=== PATIENT | female | born 1995 | race Caucasian/White ===

== ENCOUNTER 2020-03-26 22:32 | Emergency (ER) | payer SELFPAY ==
--- NOTE | 2020-03-26 23:23 | ED_ITS ---
HPI - Fever General Chief Complaint: Fever Stated Complaint: FLU LIKE SYMPTOMS Time Seen by Provider: 03/26/20 23:23 Source: patient Mode of arrival: ambulatory Limitations: no limitations History of Present Illness HPI Narrative: Patient with recent cough for 2 weeks, now with increasing fever and conjunctivits elicited complaint: fever Onset (ago): week(s) Context: sick contacts and other(s) with similar symptoms Associated symptoms: myalgias and headache Related Data Previous Rx's Medication Instructions Recorded besifloxacin [Besivance] 1 drp OPHTHALMIC (EYE) TID 7 Days 03/26/20 ml Allergies Allergy/AdvReac Type Severity Reaction Status Date / Time No Known Allergies Allergy Verified 03/26/20 23:27 Review of Systems Constitutional: Constitutional: Reports no additional constitutional complaints Eyes: Eyes: Reports no additional eye complaints ENT: Denies dizziness Cardiovascular: Cardiovascular: Reports no additional cardiovascular complaints Respiratory: Respiratory: Reports as per HPI Gastrointestinal: Gastrointestinal: Reports no additional gastrointestinal complaints Genitourinary: Genitourinary: Reports no additional female genitourinary complaints Musculoskeletal: Musculoskeletal: Reports no additional musculoskeletal complaints Integumentary/Breasts: Skin/Breast: Denies rash Neurologic: Reports system reviewed and no additional complaints, except as documented, Denies dizziness and Denies Sensory deficit (Neuro) Psychiatric: Psychiatric: Denies anxiety Physical Exam Const: General: healthy appearing Nutritional Appearance: average body habitus Orientation/consciousness: oriented to person and patient oriented x3 Limitations: no limitations HENMT: Head: Yes normal to inspection Ears: external ears normal General nose exam: Normal external nose present Mouth: Normal oral and palatal mucosa present and oropharynx normal Throat: Yes posterior oropharynx normal Eyes: Other: bilateral conjunctivitis Neck: Other: supple Neck: Yes normal visual inspection Chest: Chest palpation & inspection: normal inspection of the chest Resp: Auscultation: clear to auscultation bilaterally Cardio: Jugular venous distension: no JVD Rate: regular rate Rhythm: regular rhythm Heart sounds: S1 normal heart sound present and S2 normal heart sound present GI: Inspection: Yes normal to inspection Palpation (GI): Soft to palpation, nontender and No hepatosplenomegaly present Auscultation: normal bowel sounds : General: Yes no CVA tenderness Back/Spine/Pelvis: Back: no CVA tenderness Skin: General skin exam: no rashes or lesions noted Neuro: General: oriented to person and patient oriented x3 Cranial nerves: Yes CN's II-XII intact bilaterally Motor exam (neuro): 5/5 motor strength present throughout Sensory Exam: No Sensory deficit (Neuro) Extrem: General: Yes normal to inspection Psych: Appearance: grossly normal Course Reevaluation(s) Reevaluation #1: will obtain covid and treat conjunctivitis Time: 23:26 MDM - Fever MDM Narrative Medical decision making narrative: concerned about COVID and conjunctivits Discharge Plan Discharge Clinical Impression: Viral infection, Exposure to SARS-associated coronavirus Acute bacterial conjunctivitis Qualifiers: Laterality: bilateral Qualified Code(s): H10.33 - Unspecified acute con junctivitis, bilateral Patient Disposition: Home, Self-Care Additional Instructions: self quarantine until results are known, follow up with your doctor Prescriptions: New Besivance 0.6 % drops,suspension 1 drp ophthalmic (eye) TID 7 Days RF: 0
[2020-03-26 23:46] VITALS: BP 117/58; PULSE 75; PULSE 76; RESP 16; TEMP 36.9; O2SAT 100; BMI 29.2
== END 2020-03-26 23:59 | disposition home or self-care (01) ==
LOC: HO.ED 23:37
PROVIDERS: Emergency Provider Emergency Medicine
DX: H10.33 Unspecified acute conjunctivitis, bilateral (principal); Z20.828 Contact with and (suspected) exposure to other viral communicable diseases
CPT/HCPCS: 36415; 87635; 99283; 99284

== ENCOUNTER 2020-04-01 16:22 | Emergency (ER) | payer SELFPAY ==
[2020-04-01 16:35] VITALS: BP 120/69; PULSE 95; RESP 16; TEMP 37.1; O2SAT 100; BMI 29.0
--- NOTE | 2020-04-01 17:06 | ED.DENTAL ---
HPI - Dental/Oral General Chief complaint: Dental/Oral Stated complaint: tooth infection Time Seen by Provider: 04/01/20 17:06 Source: patient Mode of arrival: ambulatory Limitations: no limitations History of Present Illness HPI Narrative: right lower dental pain times several weeks. 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 Complaint: tooth pain Location: Tooth # Teeth map: 1. Extensive caries and broken tooth with mild erythema and swelling. No fluctuance or palpable abscess Onset (ago): week(s) Duration: constant Severity: mild Relieving factors: nothing Exacerbating factors: chewing, cold, heat and drinking fluids Context: history of dental caries and trauma (mechanism) Treatment prior to arrival: none Related Data Previous Rx's Medication Instructions Recorded besifloxacin [Besivance] 1 drp OPHTHALMIC (EYE) TID 7 Days 03/26/20 ml besifloxacin [Besivance] 1 drp OPHTHALMIC (EYE) TID 7 Days 03/27/20 ml amoxicillin 500 mg PO BID #14 cap 04/01/20 ibuprofen 800 mg PO Q8H PRN #20 tab 04/01/20 Allergies Allergy/AdvReac Type Severity Reaction Status Date / Time No Known Allergies Allergy Verified 03/26/20 23:27 Review of Systems Review of Systems: Yes all other systems are reviewed and are negative Constitutional: Constitutional: Reports no additional constitutional complaints, Denies body ache(s), Denies chills, Denies fever(s), Denies headache(s) and Denies weakness Eyes: Eyes: Reports no additional eye complaints and Denies change in vision ENT: Reports system reviewed and no additional complaints, except as documented, Reports dental pain, Denies dizziness, Denies headache(s), Denies nasal congestion, Denies nasal discharge and Denies neck pain Cardiovascular: Cardiovascular: Reports no additional cardiovascular complaints, Denies chest pain, Denies leg edema and Denies dyspnea Respiratory: Respiratory: Reports no additional respiratory complaints, Denies cough and Denies dyspnea Gastrointestinal: Gastrointestinal: Reports no additional gastrointestinal complaints, Denies abdominal pain, Denies diarrhea, Denies nausea and Denies vomiting Genitourinary: Genitourinary: Reports no additional female genitourinary complaints and Denies urinary incontinence Musculoskeletal: Musculoskeletal: Reports no additional musculoskeletal complaints, Denies back pain, Denies arthralgias, Denies joint swelling, Denies neck pain, Denies numbness and Denies tingling Integumentary/Breasts: Skin/Breast: Reports system reviewed and no additional complaints, except as docu and Denies rash Neurologic: Reports system reviewed and no additional complaints, except as documented, Denies Abnormal speech present, Denies dizziness, Denies headache(s), Denies numbness, Denies tingling and Denies weakness PMF Past Medical History Attestation statement: The following information was validated with the patient. Source: obtained from family and nursing notes reviewed Medical History Multiple sclerosis Family History Family History Mother Hypertension Diabetes Father Hypertension Maternal Grandmother Diabetes Social History Social History Alcohol intake: current Alcohol intake frequency: 0-2 drinks per day Alcohol type: hard liquor Smoking Status: Current every day smoker Advance Directives: No Advance Directives Information Provided: Yes Physical Exam Vital Signs and I&O and Narrative: Vital Signs and I&O: Vital Signs Temp 98.7 F 04/01/20 16:35 Pulse 95 04/01/20 16:35 Resp 16 04/01/20 16:35 BP 120/69 04/01/20 16:35 Pulse Ox 100 04/01/20 16:35 Intake & Output 03/31/20 04/01/20 04/01/20 18:59 06:59 18:59 Weight 81.647 kg Body Mass Index 29.0 Const: General: cooperative, healthy appearing, comfortable and no acute distress Orientation/consciousness: patient oriented x3 Limitations: no limitations HENMT: Other: no trismus. Head: Yes normal to inspection Ears: hearing grossly normal bilaterally General nose exam: Normal external nose present Face and sinus: Yes normal facial exam Mouth: Normal oral and palatal mucosa present Throat: Yes posterior oropharynx normal Eyes: General: appearance normal, both eyes and all related structures Pupils: Equal, round and reactive pupils present Neck: Neck: Yes normal visual inspection Chest: Chest palpation & inspection: normal inspection of the chest Resp: Effort & Inspection: normal respiratory effort Auscultation: clear to auscultation bilaterally Cardio: Rate: regular rate Rhythm: regular rhythm Peripheral pulses: Peripheral pulses 2+ throughout GI: Inspection: Yes normal to inspection Palpation (GI): Soft to palpation and nontender Auscultation: normal bowel sounds Back/Spine/Pelvis: Thoracic/Lumbar Spine: thoracic and lumbar spine normal to inspection Skin: General skin exam: no rashes or lesions noted Neuro: General: patient oriented x3, no focal motor deficits and normal sensation to monofilament Cranial nerves: Yes Equal, round and reactive pupils present Cognition (Neuro): normal cognition Speech: No Abnormal speech present Gait exam (Neuro): Normal gait present Motor exam (neuro): 5/5 motor strength present throughout Extrem: General: Yes normal to inspection MDM - Dental/Oral MDM Narrative Medical decision making narrative: Dental caries with local infection. No trismus or palpable abscess. Discharge Plan Discharge Clinical Impression: Toothache, Dental caries Patient Disposition: Home, Self-Care Instructions: Toothache (ED) Additional Instructions: see dental clinic list Prescriptions: New amoxicillin 500 mg capsule 500 mg PO BID Qty: 14 RF: 0 ibuprofen 800 mg tablet 800 mg PO Q8H PRN (Reason: pain) Qty: 20 RF: 0 No Action Besivance 0.6 % drops,suspension 1 drp ophthalmic (eye) TID 7 Days RF: 0 Besivance 0.6 % drops,suspension 1 drp ophthalmic (eye) TID 7 Days RF: 0 Referrals: Physician,None [Primary Care Provider] - 2 days Interventions: ED Discharge Assessment Last Done: 04/01/20 17:45 Discharge Date/Time: 04/01/20 17:45
== END 2020-04-01 17:45 | disposition home or self-care (01) ==
PROVIDERS: Emergency Provider Internal Medicine
DX: K02.9 Dental caries, unspecified (principal); F17.200 Nicotine dependence, unspecified, uncomplicated; G35 Multiple sclerosis
CPT/HCPCS: 99283

== ENCOUNTER 2020-05-17 19:58 | Emergency (ER) | payer OTHER, SELFPAY ==
--- NOTE | 2020-05-17 | US_ITS ---
EXAM: Pelvic OB Ultrasound CLINICAL INDICATION: Bleeding and cramping. Approximately 8 weeks . COMPARISON: No similar prior imaging available for comparison. TECHNIQUE: The pelvis was evaluated using transabdominal imaging. FINDINGS: The uterus measures approximately 10.6 x 6.9 x 7.2 cm. Within the uterus there is a single gestational sac. A yolk sac is visualized as is a pole. [place]-rump length measures approximately 1.9 cm which corresponds with an estimated gestational age of 8 weeks and 3 days. heart rate of 156 bpm demonstrated. No motion identified. The cervix is unremarkable in appearance. Both ovaries are visualized and are grossly unremarkable with the exception of a 2.3 cm right ovarian cyst, possibly a corpus luteum. No free fluid identified within the pelvic cul-de-sac. US/US OB <= 14 weeks fetus IMPRESSION: Single live intrauterine with an estimated gestational age by ultrasound evaluation of 8 weeks and 3 days. This corresponds with an estimated due date of 12/24/2020.
[2020-05-17 20:40] VITALS: BP 100/53; PULSE 83; RESP 18; TEMP 37.1; O2SAT 100; BMI 30.7
[2020-05-17 20:51] LABS: Glucose Urine UA NEG (NEG); Leukocyte Esterase Urine TRACE (NEG); Nitrite Urine NEG (NEG); Specific Gravity - Urine >= 1.030 (1.005-1.025); Urine Blood NEG (NEG); Urine Ketones NEG (NEG); Urine Protein NEG (NEG-TRACE)
[2020-05-17 20:52] LABS: Appearance Urine HAZY; Color Urine YELLOW
[2020-05-17 20:58] LABS: Bacteria Urine 2+ /LPF; Mucus Urine 2+ /LPF; RBC Urine 0-2 /HPF (0); Squamous Epithelial Cell Urine 2+ /LPF
--- NOTE | 2020-05-17 21:12 | ED.PREGNANCY ---
HPI - General Chief complaint: Abdominal Pain Stated complaint: Abdominal pressure/Preg Time Seen by Provider: 05/17/20 21:05 Source: patient Mode of arrival: ambulatory History of Present Illness HPI Narrative: 24-year-old female. at approximately 8 weeks , with unknown last date of menstruation. Here for generalized suprapubic cramping with vaginal spotting. Denies urinary pain. Denies fevers or chills denies lower back pain. Denies syncope or nausea vomiting. Denies trauma has not seen an OBGYN at [facility] Complaint: abdominal pain and vaginal bleeding Onset (ago): day(s) (2) Pain Consistency: constant Location: pelvis Severity: mild Severity scale (1-10): 3 Hx Last Menstrual Period: End february Patient : Yes care: none Related Data Previous Rx's Medication Instructions Recorded besifloxacin [Besivance] 1 drp OPHTHALMIC (EYE) TID 7 Days 03/26/20 ml besifloxacin [Besivance] 1 drp OPHTHALMIC (EYE) TID 7 Days 03/27/20 ml amoxicillin 500 mg PO BID #14 cap 04/01/20 ibuprofen 800 mg PO Q8H PRN #20 tab 04/01/20 nitrofurantoin monohyd/m-cryst 100 mg PO BID #10 cap 05/17/20 [Macrobid] Allergies Allergy/AdvReac Type Severity Reaction Status Date / Time No Known Allergies Allergy Verified 03/26/20 23:27 Review of Systems Review of Systems: Constitutional : No Weight loss, No Fever, No Chills, No Night Sweats, No Fatigue, No Malaise ENT/Mouth : No Hearing loss, No Ear Pain, No Nasal Congestion, No Sinus Pain, No Hoarseness, No sore throat, No Rhinorrhea, No Swallowing Difficulty Eyes: No Eye Pain, No Swelling, No Redness, No Foreign Body, No Discharge, No Vision Changes Cardiovascular : No Chest Pain, No SOB, No Dyspnea on Exertion, No Orthopnea, No Edema, No Palpitations Respiratory : No Cough, No Sputum, No Wheezing, No Smoke Exposure, No Dyspnea Gastrointestinal : No Nausea, No Vomiting, No Diarrhea, No Constipation, No abdominal Pain, No Hematochezia, No Melena Genitourinary : Positive irregular bleeding, No Dysuria, No Urinary Frequency, No Hematuria, No Urinary Incontinence, No Urgency, No Flank Pain, No Urinary Flow Changes, No Hesitancy Musculoskeletal : No joint pain, No Myalgias, No Joint Swelling Skin : No Skin Lesions, No rash Neuro : No Weakness, No Numbness, No Paresthesias, No Loss of Consciousness, No Dizziness, No Headache Psych : No Anxiety/Panic, No Depression, No SI/HI/AH/VH, No Social Issues, Heme/Lymph: No Bruising, No Bleeding,No Lymphadenopathy Endocrine : No Polyuria, No Polydipsia, No Temperature Intolerance [facility] Past Medical History Medical History Multiple sclerosis Hx Last Menstrual Period: End of February Family History Family History Mother Hypertension Diabetes Father Hypertension Maternal Grandmother Diabetes Social History Social History Alcohol intake: never Smoking Status: Light tobacco smoker Smoked in Last 30 Days: No Use of substances other than those prescribed or required for medical reasons: No Advance Directives: No Advance Directives Information Provided: Yes Physical Exam Vital Signs: Vital Signs: Last Vital Signs Temp 98.2 F 05/17/20 22:11 Pulse 72 05/17/20 22:11 Resp 18 05/17/20 22:11 BP 117/45 L 05/17/20 22:11 Pulse Ox 100 05/17/20 22:11 Body Mass Index 30.7 Vital signs reviewed Appearance: Alert. Oriented X3. No acute distress. Eyes: Pupils equal, round and reactive to light. ENT: Pharynx normal. Neck: Normal inspection. Neck supple. No lymph nodes noted. No crepitus CVS: Normal heart rate and rhythm. Pulses normal. Normal S1 and S2 Respiratory: No respiratory distress. Breath sounds normal. No Wheezing. No rales Abdomen: Soft and nontender. No rigidity. No distention. good BS x4 Skin: Skin warm and dry. Normal skin color. Normal skin turgor. Extremities: No lower extremity edema. Neurovascular intact to all extremities. No Lacerations. No Rash Neuro: Oriented X 3. No motor deficit. No sensory deficit. Moving all extermities. No slurred speech. Ob: Deferred secondary to ultrasound Course Reevaluation(s) Reevaluation #1: Differential diagnosis is ectopic , , UTI MDM - OB/Uterine Contractions MDM Narrative Medical decision making narrative: 24-year-old female with vaginal bleeding. Ultrasound confirms IUP mild UTI will discharge home with p.o. antibiotics Rh positive Lab Data Result diagrams: 05/17/20 21:24 05/17/20 21:24 Labs: Lab Results 05/17/20 05/17/20 05/17/20 Range/Units 20:44 21:24 21:24 WBC 9.1 (4.8-10.8) X10*3/uL RBC 5.31 (4.20-5.50) X10*6/uL Hgb 10.5 L (12.0-16.0) g/dl Hct 36.2 L (37-47) % MCV 68.2 L (80-98) fL MCH 19.8 L (27.0-33.0) pg MCHC 29.0 L (31.0-35.0) g/dl RDW 20.5 H (11.0-16.0) % Plt Count 315 (160-400) X10*3/uL MPV 10.4 (9.4-12.3) fL Immature Gran % (Auto) 0.3 (0.0-0.4) % Neut % (Auto) 70.5 (45-73) % Lymph % (Auto) 18.8 L (20-40) % [place] % (Auto) 9.4 (2-11) % Eos % (Auto) 0.7 (0-4) % Baso % (Auto) 0.3 (0-2) % Lymph # (Auto) 1.7 (1.2-4.9) X10*3/uL [place] # (Auto) 0.9 (0.1-1.2) X10*3/uL Eos # (Auto) 0.1 (0.0-0.4) X10*3/uL Baso # (Auto) 0.0 (0.0-0.2) X10*3/uL Abs Immat Gran (auto) 0.03 (0.00-0.03) X10*3/uL Absolute Neuts (auto) 6.4 (2.0-8.3) X10*3/uL Absolute Nucleated RBC 0.000 (0.0-0.012) X10*3/uL Nucleated RBC % (auto) 0.0 (0.0-0.2) /100WBC Sodium 133 L (135-145) mmol/L Potassium 4.0 (3.3-5.1) mmol/l Chloride 102 (96-108) mmol/L Carbon Dioxide 22 (22-29) mmol/L Anion Gap 13 (12-20) BUN 8 L (9-16) mg/dL Creatinine 0.70 (0.5-1.4) mg/dL Estim Creat Clear Calc 137.0 Estimated GFR > 60 Random Glucose 75 (60-115) mg/dL Calcium 9.0 (8.4-10.2) mg/dL Total Bilirubin 0.3 (0.0-1.0) mg/dL Direct Bilirubin < 0.2 (0.0-0.5) mg/dL AST 13 (5-31) U/L ALT 7 (0-31) U/L Alkaline Phosphatase 50 (39-117) U/L Total Protein 7.1 (6.5-8.0) g/dL Albumin 4.0 (3.5-5.0) g/dL Beta HCG, Quant 364465 mIU/mL Urine Color YELLOW Urine Appearance HAZY Urine pH 6.0 (5.0-8.0) Ur Specific [place] >= 1.030 H (1.005-1.025) Urine Protein NEG (NEG-TRACE) MG/DL Urine Glucose (UA) NEG (NEG) MG/DL Urine Ketones NEG (NEG) MG/DL Urine Blood NEG (NEG) Urine Nitrite NEG (NEG) Ur Leukocyte Esterase TRACE H (NEG) Urine RBC 0-2 (0) /HPF Urine WBC 10-14 H (0-4) /HPF Ur Squamous Epith Cells 2+ /LPF Urine Bacteria 2+ /LPF Urine Mucus 2+ /LPF Urine Test POSITIVE H (NEGATIVE) Blood Type 05/17/20 Range/Units 21:25 WBC (4.8-10.8) X10*3/uL RBC (4.20-5.50) X10*6/uL Hgb (12.0-16.0) g/dl Hct (37-47) % MCV (80-98) fL MCH (27.0-33.0) pg MCHC (31.0-35.0) g/dl RDW (11.0-16.0) % Plt Count (160-400) X10*3/uL MPV (9.4-12.3) fL Immature Gran % (Auto) (0.0-0.4) % Neut % (Auto) (45-73) % Lymph % (Auto) (20-40) % [place] % (Auto) (2-11) % Eos % (Auto) (0-4) % Baso % (Auto) (0-2) % Lymph # (Auto) (1.2-4.9) X10*3/uL [place] # (Auto) (0.1-1.2) X10*3/uL Eos # (Auto) (0.0-0.4) X10*3/uL Baso # (Auto) (0.0-0.2) X10*3/uL Abs Immat Gran (auto) (0.00-0.03) X10*3/uL Absolute Neuts (auto) (2.0-8.3) X10*3/uL Absolute Nucleated RBC (0.0-0.012) X10*3/uL Nucleated RBC % (auto) (0.0-0.2) /100WBC Sodium (135-145) mmol/L Potassium (3.3-5.1) mmol/l Chloride (96-108) mmol/L Carbon Dioxide (22-29) mmol/L Anion Gap (12-20) BUN (9-16) mg/dL Creatinine (0.5-1.4) mg/dL Estim Creat Clear Calc Estimated GFR Random Glucose (60-115) mg/dL Calcium (8.4-10.2) mg/dL Total Bilirubin (0.0-1.0) mg/dL Direct Bilirubin (0.0-0.5) mg/dL AST (5-31) U/L ALT (0-31) U/L Alkaline Phosphatase (39-117) U/L Total Protein (6.5-8.0) g/dL Albumin (3.5-5.0) g/dL Beta HCG, Quant mIU/mL Urine Color Urine Appearance Urine pH (5.0-8.0) Ur Specific [place] (1.005-1.025) Urine Protein (NEG-TRACE) MG/DL Urine Glucose (UA) (NEG) MG/DL Urine Ketones (NEG) MG/DL Urine Blood (NEG) Urine Nitrite (NEG) Ur Leukocyte Esterase (NEG) Urine RBC (0) /HPF Urine WBC (0-4) /HPF Ur Squamous Epith Cells /LPF Urine Bacteria /LPF Urine Mucus /LPF Urine Test (NEGATIVE) Blood Type O Positive Discharge Plan Discharge Clinical Impression: Vaginal bleeding, , threatened UTI (urinary tract infection) during Qualifiers: Trimester: first trimester Qualified Code(s): O23.41 - Unspecified infection of urinary tract in , first trimester Qualifiers: Weeks of gestation: 8 weeks Qualified Code(s): Z3A.08 - 8 weeks gestation of Patient Disposition: Home, Self-Care Instructions: Threatened Miscarriage (ED), Urinary Tract Infection in (ED) Additional Instructions: Thank you for visiting the emergency department today. If your symptoms worsen or do not resolve completely please return to the emergency department immediately or call 911. if he have any questions please call your primary care physician Prescriptions: New nitrofurantoin monohyd/m-cryst [Macrobid] 100 mg capsule 100 mg PO BID Qty: 10 RF: 0 No Action Besivance 0.6 % drops,suspension 1 drp ophthalmic (eye) TID 7 Days RF: 0 Besivance 0.6 % drops,suspension 1 drp ophthalmic (eye) TID 7 Days RF: 0 amoxicillin 500 mg capsule 500 mg PO BID Qty: 14 RF: 0 ibuprofen 800 mg tablet 800 mg PO Q8H PRN (Reason: pain) Qty: 20 RF: 0 Referrals: [facility] [Provider Group] - 2 days
[2020-05-17 21:18] LABS: UPreg QC Valid YES; Urine Pregnancy POSITIVE (NEGATIVE)
[2020-05-17] MEDS: 0.9 % Sodium Chloride 1,000 ML 999 ML IVCONT (21:26)
[2020-05-17 21:32] LABS: Basophils Percent Auto 0.3 % (0-2); Eosinophils Absolute Auto 0.1 X10*3/uL (0.0-0.4); Eosinophils Percent Auto 0.7 % (0-4); Hematocrit 36.2 % (37-47); Hemoglobin 10.5 g/dl (12.0-16.0); Imm Gran Abs Auto 0.03 X10*3/uL (0.00-0.03); Imm Gran Pct Auto 0.3 % (0.0-0.4); Lymphocytes Absolute Auto 1.7 X10*3/uL (1.2-4.9); Lymphocytes Percent Auto 18.8 % (20-40); Mean Corpuscular Hemoglobin 19.8 pg (27.0-33.0); Mean Corpuscular Volume 68.2 fL (80-98); Mean Platelet Volume 10.4 fL (9.4-12.3); Monocytes Absolute Auto 0.9 X10*3/uL (0.1-1.2); Monocytes Percent Auto 9.4 % (2-11); Neutrophils Absolute Auto 6.4 X10*3/uL (2.0-8.3); Neutrophils Percent Auto 70.5 % (45-73); Platelet Count 315 X10*3/uL (160-400); Red Blood Count 5.31 X10*6/uL (4.20-5.50); Red Cell Distribution Width 20.5 % (11.0-16.0); White Blood Count 9.1 X10*3/uL (4.8-10.8)
[2020-05-17 21:33] LABS: MANUAL DIFF FLAG NO
[2020-05-17 21:53] LABS: Alanine Aminotransferase 7 U/L (0-31); Alkaline Phosphatase 50 U/L (39-117); Anion Gap 13 (12-20); Aspartate Amino Transferase 13 U/L (5-31); Bilirubin Direct < 0.2 mg/dL (0.0-0.5); Bilirubin Total 0.3 mg/dL (0.0-1.0); Blood Urea Nitrogen 8 mg/dL (9-16); Carbon Dioxide 22 mmol/L (22-29); Chloride 102 mmol/L (96-108); Estimated Glomerular Filt Rate > 60; Glucose Random 75 mg/dL (60-115); Sodium 133 mmol/L (135-145); Total Protein 7.1 g/dL (6.5-8.0)
[2020-05-17 22:11] VITALS: BP 117/45; PULSE 72; RESP 18; TEMP 36.8; O2SAT 100
[2020-05-17] MEDS: Nitrofurantoin Monohyd/M-Cryst 100 MG CAPSULE PO (23:32)
== END 2020-05-18 00:08 | disposition home or self-care (01) ==
PROVIDERS: Emergency Provider Emergency Medicine
DX: O20.0 Threatened abortion (principal); Z3A.08 8 weeks gestation of pregnancy
CPT/HCPCS: 36415; 76801; 80048; 80076; 81001; 81025; 84702; 85025; 86900; 86901; 87086; 96360; 99284

== ENCOUNTER 2020-05-27 20:44 | Emergency (ER) | payer OTHER, SELFPAY ==
[2020-05-27 20:46] VITALS: BP 119/62; PULSE 95; RESP 16; TEMP 36.6; O2SAT 99; BMI 30.7
[2020-05-27 22:00] VITALS: BP 96/58; PULSE 86; RESP 18; TEMP 36.8; O2SAT 98
--- NOTE | 2020-05-27 23:03 | ED_ITS ---
HPI - General Chief complaint: Vaginal Bleeding Stated complaint: Vaginal bleeding/10 weeks preg. Time Seen by Provider: 05/27/20 21:52 Source: patient Mode of arrival: ambulatory Limitations: no limitations History of Present Illness HPI Narrative: This is a 24-year-old female with significant past medical history of MS not currently on medication who is currently , G1, with an LMP of 03/19 which places her at approximately 10 weeks which was further corroborated as per patient by a free clinic in [place] where she had an ultrasound. She presents today with complaints of lower abdominal /pelvic cramping that started this morning with associated spotting but denies any clots. In addition, patient denies any fevers, chills, vomiting, diarrhea, urinary pain/ burning /frequency. Of note, patient was recently treated for UTI. Related Data Previous Rx's Medication Instructions Recorded besifloxacin [Besivance] 1 drp OPHTHALMIC (EYE) TID 7 Days 03/26/20 ml besifloxacin [Besivance] 1 drp OPHTHALMIC (EYE) TID 7 Days 03/27/20 ml amoxicillin 500 mg PO BID #14 cap 04/01/20 ibuprofen 800 mg PO Q8H PRN #20 tab 04/01/20 nitrofurantoin monohyd/m-cryst 100 mg PO BID #10 cap 05/17/20 [Macrobid] cefixime 400 mg PO DAILY 5 Days #5 cap 05/28/20 Allergies Allergy/AdvReac Type Severity Reaction Status Date / Time No Known Allergies Allergy Verified 03/26/20 23:27 Review of Systems Review of Systems: Pertinent positives and negatives as stated in HPI 10 point review systems is otherwise negative. [facility] Past Medical History Source: nursing notes reviewed Medical History Multiple sclerosis Family History Family History Mother Hypertension Diabetes Father Hypertension Maternal Grandmother Diabetes Social History Social History Alcohol intake: unknown Smoking Status: Never smoker Use of substances other than those prescribed or required for medical reasons: No Advance Directives: No Advance Directives Information Provided: Yes Physical Exam Vital Signs: Vital Signs: Last Vital Signs Temp 98.2 F 05/28/20 00:49 Pulse 67 05/28/20 00:49 Resp 18 05/28/20 00:49 BP 95/41 L 05/28/20 00:49 Pulse Ox 98 05/28/20 00:49 Body Mass Index 30.7 VITAL SIGNS: Reviewed. GENERAL: Well developed, well nourished, in no acute distress. HEAD: Normocephalic/atraumatic, EYES: PERRLA, EOMI intact without pain, no nystagmus/pallor/icterus noted EARS: Ext canals without abnormality, TMs non-bulging and non-erythematous NOSE: Nares patent bilateral OROPHARYNX: no oral lesions noted, posterior pharynx clear and non-erythematous without noted tonsillar enlargement/erythema/exudates NECK: Supple, no adenopathy LUNGS: Normal breath sounds. No adventitious sounds or accessory muscle use. SpO2<99> CARDIOVASCULAR: Regular rate and rhythm without noted murmurs, no JVD or lower extremity edema. ABDOMEN: Soft, non-tender, non-distended with bowel sounds. No rigidity. No guarding. No palpable masses or hernias noted MUSCULOSKELETAL: No tenderness, deformities, or effusions noted on gross inspection. EXTREMITIES: No cyanosis, clubbing or edema. SKIN: Inspection of the skin reveals no rashes, ulcerations, jaundice, pallor, or petechiae. NEUROLOGIC: Alert and oriented x 4. Strength and sensation to light touch were grossly intact x 4. Course Course Course Narrative: This is a 24-year-old female with history and clinical presentation concerning for possible SAB and will evaluate for possible loss versus benign 1st trimester transient vaginal bleeding.In review of prior documentation patient was seen here on 05/17 for similar symptoms and at that time was determined to be Rh positive and discharged home and treated for a UTI. On review investigations today there are no acute findings in comparison with the workup from 05/17 other than a noted decrease in the quantitative beta HCG, however ultrasound shows a live IUP at 9 weeks and 6 days. In addition, there is a noted evidence of trace leukocyte esterase. Dr Bradley called to discuss the significance of the decrease and beta hCG And patient will receive 1 L fluids as well as a single dose of IV Rocephin. Reevaluation(s) Reevaluation #1: I discussed this case with Dr. Bradley who states that the quantitative beta-hCG can at times around the 10 week. Plateau and as long as the ultrasound showing a live IUP he recommends that patient should be counseled on possible SAB, but that this can otherwise be followed up outpatient. Time: 01:50 MDM - OB/Uterine Contractions Lab Data Result diagrams: 05/27/20 23:08 05/27/20 23:08 Labs: Lab Results 05/27/20 05/27/20 05/27/20 Range/Units 23:08 23:08 23:53 WBC 9.0 (4.8-10.8) X10*3/uL RBC 5.28 (4.20-5.50) X10*6/uL Hgb 10.8 L (12.0-16.0) g/dl Hct 36.5 L (37-47) % MCV 69.1 L (80-98) fL MCH 20.5 L (27.0-33.0) pg MCHC 29.6 L (31.0-35.0) g/dl RDW 21.3 H (11.0-16.0) % Plt Count 281 (160-400) X10*3/uL MPV 10.4 (9.4-12.3) fL Immature Gran % (Auto) 0.2 (0.0-0.4) % Neut % (Auto) 64.1 (45-73) % Lymph % (Auto) 21.5 (20-40) % [place] % (Auto) 11.6 H (2-11) % Eos % (Auto) 2.2 (0-4) % Baso % (Auto) 0.4 (0-2) % Lymph # (Auto) 1.9 (1.2-4.9) X10*3/uL [place] # (Auto) 1.1 (0.1-1.2) X10*3/uL Eos # (Auto) 0.2 (0.0-0.4) X10*3/uL Baso # (Auto) 0.0 (0.0-0.2) X10*3/uL Abs Immat Gran (auto) 0.02 (0.00-0.03) X10*3/uL Absolute Neuts (auto) 5.8 (2.0-8.3) X10*3/uL Absolute Nucleated RBC 0.000 (0.0-0.012) X10*3/uL Nucleated RBC % (auto) 0.0 (0.0-0.2) /100WBC Sodium 135 (135-145) mmol/L Potassium 4.2 (3.3-5.1) mmol/l Chloride 105 (96-108) mmol/L Carbon Dioxide 20 L (22-29) mmol/L Anion Gap 14 (12-20) BUN 6 L (9-16) mg/dL Creatinine 0.66 (0.5-1.4) mg/dL Estim Creat Clear Calc 145.4 Estimated GFR > 60 Random Glucose 78 (60-115) mg/dL Calcium 8.7 (8.4-10.2) mg/dL Total Bilirubin 0.3 (0.0-1.0) mg/dL AST 17 (5-31) U/L ALT 6 (0-31) U/L Alkaline Phosphatase 48 (39-117) U/L Total Protein 7.1 (6.5-8.0) g/dL Albumin 4.0 (3.5-5.0) g/dL Beta HCG, Quant 996908 mIU/mL Urine Color YELLOW Urine Appearance HAZY Urine pH 6.0 (5.0-8.0) Ur Specific [place] 1.025 (1.005-1.025) Urine Protein NEG (NEG-TRACE) MG/DL Urine Glucose (UA) NEG (NEG) MG/DL Urine Ketones NEG (NEG) MG/DL Urine Blood 2+ H (NEG) Urine Nitrite NEG (NEG) Ur Leukocyte Esterase TRACE H (NEG) Urine RBC 0-2 (0) /HPF Urine WBC 5-9 H (0-4) /HPF Ur Squamous Epith Cells 2+ /LPF Urine Bacteria 1+ /LPF Urine Mucus 1+ /LPF Urine Test POSITIVE H (NEGATIVE) Discharge Plan Discharge Clinical Impression: Vaginal bleeding affecting early Patient Disposition: Home, Self-Care Additional Instructions: 1. You need to follow-up with your steam pressure chamber operator at your earliest convenience. 2. Continue with your vitamins. 3. increase your fluid hydration especially with water. The patient and/or family acknowledge understanding of results (as applicable), diagnosis, treatment plan, need for follow up, and symptoms that should prompt a return to the emergency room. Prescriptions: New cefixime 400 mg capsule 400 mg PO DAILY 5 Days Qty: 5 RF: 0 No Action Besivance 0.6 % drops,suspension 1 drp ophthalmic (eye) TID 7 Days RF: 0 Besivance 0.6 % drops,suspension 1 drp ophthalmic (eye) TID 7 Days RF: 0 nitrofurantoin monohyd/m-cryst [Macrobid] 100 mg capsule 100 mg PO BID Qty: 10 RF: 0 amoxicillin 500 mg capsule 500 mg PO BID Qty: 14 RF: 0 ibuprofen 800 mg tablet 800 mg PO Q8H PRN (Reason: pain) Qty: 20 RF: 0 Referrals: Physician,None [Primary Care Provider] - 2 days ( re-evaluation for and vaginal bleeding)
--- NOTE | 2020-05-27 23:06 | US_ITS ---
Indication: Vaginal bleeding EXAMINATION: Obstetrical ultrasound. Single live intrauterine . [place]-rump length 3.2 cm. Corresponds to 10 weeks 1 day. Gestational sac and yolk sac is seen. heart rate 167 bpm. motion is seen. The right ovary is 2.4 x 1.8 x 2.7 cm. 2.4 x 2.2 cyst associated. Complex. Left ovary is 2.6 x 1.8 x 2 cm. Uterine myometrium shows several defined areas of heterogeneous echogenicity most consistent with fibroid. One posterior in the lower uterine segment measuring 3.2 x 3.4 cm. Another in the fundus measuring 3 x 2.8 cm. US/US OB <= 14 weeks fetus IMPRESSION: Single live intrauterine . 9 weeks 6 days by ultrasound criteria. Probable uterine fibroids are noted
[2020-05-27 23:18] LABS: Basophils Percent Auto 0.4 % (0-2); Eosinophils Absolute Auto 0.2 X10*3/uL (0.0-0.4); Eosinophils Percent Auto 2.2 % (0-4); Hematocrit 36.5 % (37-47); Hemoglobin 10.8 g/dl (12.0-16.0); Imm Gran Abs Auto 0.02 X10*3/uL (0.00-0.03); Imm Gran Pct Auto 0.2 % (0.0-0.4); Lymphocytes Absolute Auto 1.9 X10*3/uL (1.2-4.9); Lymphocytes Percent Auto 21.5 % (20-40); Mean Corpuscular HGB Conc 29.6 g/dl (31.0-35.0); Mean Corpuscular Hemoglobin 20.5 pg (27.0-33.0); Mean Corpuscular Volume 69.1 fL (80-98); Mean Platelet Volume 10.4 fL (9.4-12.3); Monocytes Absolute Auto 1.1 X10*3/uL (0.1-1.2); Monocytes Percent Auto 11.6 % (2-11); Neutrophils Absolute Auto 5.8 X10*3/uL (2.0-8.3); Neutrophils Percent Auto 64.1 % (45-73); Platelet Count 281 X10*3/uL (160-400); Red Blood Count 5.28 X10*6/uL (4.20-5.50); Red Cell Distribution Width 21.3 % (11.0-16.0)
[2020-05-27 23:19] LABS: MANUAL DIFF FLAG NO
[2020-05-27 23:41] LABS: Alanine Aminotransferase 6 U/L (0-31); Alkaline Phosphatase 48 U/L (39-117); Anion Gap 14 (12-20); Aspartate Amino Transferase 17 U/L (5-31); Bilirubin Total 0.3 mg/dL (0.0-1.0); Blood Urea Nitrogen 6 mg/dL (9-16); Calcium 8.7 mg/dL (8.4-10.2); Carbon Dioxide 20 mmol/L (22-29); Chloride 105 mmol/L (96-108); Creatinine Clr Calc Pharmacy 145.4; Estimated Glomerular Filt Rate > 60; Glucose Random 78 mg/dL (60-115); Potassium 4.2 mmol/l (3.3-5.1); Sodium 135 mmol/L (135-145); Total Protein 7.1 g/dL (6.5-8.0)
[2020-05-28 00:15] LABS: Glucose Urine UA NEG (NEG); Leukocyte Esterase Urine TRACE (NEG); Nitrite Urine NEG (NEG); Specific Gravity - Urine 1.025 (1.005-1.025); Urine Blood 2+ (NEG); Urine Ketones NEG (NEG); Urine Protein NEG (NEG-TRACE)
[2020-05-28 00:25] LABS: Appearance Urine HAZY; Color Urine YELLOW
[2020-05-28 00:26] LABS: UPreg QC Valid YES; Urine Pregnancy POSITIVE (NEGATIVE)
[2020-05-28] MEDS: 0.9 % Sodium Chloride 1,000 ML 999 ML IV (00:44)
[2020-05-28] MEDS: cefTRIAXone sodium 1 GM in 0.9 % Sodium Chloride 50 ML IV (00:45)
[2020-05-28 00:49] VITALS: BP 95/41; PULSE 67; RESP 18; TEMP 36.8; O2SAT 98
[2020-05-28 00:51] LABS: RBC Urine 0-2 /HPF (0); Squamous Epithelial Cell Urine 2+ /LPF
[2020-05-28 00:52] LABS: Bacteria Urine 1+ /LPF; Mucus Urine 1+ /LPF
--- NOTE | 2020-05-28 01:30 | PC.NURSE ---
Patient reporting no pain at this time. resting in ED strecher with even, unlabored respirations, using cell phone. pt able to ambulate to with steady gate for urine sample. bedside US performed.
[2020-05-28 02:31] VITALS: BP 109/58; PULSE 80; RESP 18; TEMP 36.8; O2SAT 98
== END 2020-05-28 02:34 | disposition home or self-care (01) ==
PROVIDERS: Emergency Provider Student in an Organized Health Care Education/Training Program
DX: O20.9 Hemorrhage in early pregnancy, unspecified (principal); O99.351 Diseases of the nervous system complicating pregnancy, first trimester; G35 Multiple sclerosis; Z3A.10 10 weeks gestation of pregnancy
CPT/HCPCS: 36415; 76801; 80053; 81001; 81003; 81025; 84702; 85025; 87086; 96365; 99284; J0696

== ENCOUNTER 2020-06-17 14:00 | Emergency (ER) | payer OTHER, SELFPAY ==
[2020-06-17 14:07] VITALS: BP 97/63; PULSE 77; RESP 18; TEMP 36.1; O2SAT 100; BMI 31.4
--- NOTE | 2020-06-17 16:14 | US_ITS ---
EXAMINATION: OB ULTRASOUND CLINICAL INFORMATION: Vaginal bleeding abnormal cramping, 13 weeks COMPARISON: OB ultrasound 05/27/2020 TECHNIQUE: Transabdominal ultrasound was performed. FINDINGS: A gestational sac is present within the uterus with a pole seen. The fetus was active during the course of the exam and a normal heart rate of 156 bpm was present. The crown-rump length was 6.63 cm which corresponds to a gestational age of 13 weeks. The right ovary measures 2.9 x 2.1 x 2.2 cm and appears normal. The left ovary was not seen. No free fluid is present in the cul-de-sac US/US OB <= 14 weeks fetus IMPRESSION: Normal-appearing single fetus with mean gestational age estimated by ultrasound at 13 weeks with an GRETCHEN of 12/23/2020. By the patient's first ultrasound, GRETCHEN was essentially the same at 12/24/2020.
[2020-06-17 16:54] LABS: MANUAL DIFF FLAG NO
[2020-06-17 16:56] LABS: Basophils Percent Auto 0.3 % (0-2); Eosinophils Absolute Auto 0.1 X10*3/uL (0.0-0.4); Eosinophils Percent Auto 1.7 % (0-4); Hematocrit 36.7 % (37-47); Hemoglobin 10.9 g/dl (12.0-16.0); Imm Gran Abs Auto 0.02 X10*3/uL (0.00-0.03); Imm Gran Pct Auto 0.3 % (0.0-0.4); Lymphocytes Absolute Auto 1.4 X10*3/uL (1.2-4.9); Lymphocytes Percent Auto 18.8 % (20-40); Mean Corpuscular HGB Conc 29.7 g/dl (31.0-35.0); Mean Corpuscular Hemoglobin 21.5 pg (27.0-33.0); Mean Corpuscular Volume 72.5 fL (80-98); Mean Platelet Volume 10.3 fL (9.4-12.3); Monocytes Absolute Auto 0.7 X10*3/uL (0.1-1.2); Neutrophils Absolute Auto 5.2 X10*3/uL (2.0-8.3); Neutrophils Percent Auto 69.9 % (45-73); Platelet Count 245 X10*3/uL (160-400); Red Blood Count 5.06 X10*6/uL (4.20-5.50); Red Cell Distribution Width 21.7 % (11.0-16.0); White Blood Count 7.4 X10*3/uL (4.8-10.8)
[2020-06-17 17:02] LABS: Glucose Urine UA NEG (NEG); Leukocyte Esterase Urine TRACE (NEG); Nitrite Urine NEG (NEG); Specific Gravity - Urine 1.025 (1.005-1.025); Urine Blood 3+ (NEG); Urine Ketones 5 MG/DL (NEG); Urine Protein NEG (NEG-TRACE)
[2020-06-17 17:09] LABS: Appearance Urine HAZY; Color Urine YELLOW
[2020-06-17 17:10] LABS: UPreg QC Valid YES; Urine Pregnancy POSITIVE (NEGATIVE)
[2020-06-17 17:15] LABS: INTERNATIONAL NORM RATIO 1.1 (0.9-1.1); Prothrombin Time 13.4 SEC (10.8-13.0)
[2020-06-17 17:17] LABS: Alanine Aminotransferase 6 U/L (0-31); Albumin Level 3.9 g/dL (3.5-5.0); Alkaline Phosphatase 38 U/L (39-117); Anion Gap 12 (12-20); Aspartate Amino Transferase 15 U/L (5-31); Bilirubin Total 0.4 mg/dL (0.0-1.0); Blood Urea Nitrogen 6 mg/dL (9-16); Calcium 8.8 mg/dL (8.4-10.2); Carbon Dioxide 22 mmol/L (22-29); Chloride 103 mmol/L (96-108); Creatinine Clr Calc Pharmacy 151.8; Estimated Glomerular Filt Rate > 60; Glucose Random 80 mg/dL (60-115); Potassium 4.3 mmol/l (3.3-5.1); Sodium 133 mmol/L (135-145); Total Protein 6.9 g/dL (6.5-8.0)
[2020-06-17 17:54] LABS: Bacteria Urine 1+ /LPF; Squamous Epithelial Cell Urine 1+ /LPF
[2020-06-17 18:00] VITALS: BP 106/62; PULSE 65; RESP 18; O2SAT 100
--- NOTE | 2020-06-17 18:32 | ED.GENADULT ---
HPI - General Adult General Chief complaint: General Medical Stated complaint: vag bleeding Time Seen by Provider: 06/17/20 16:14 Source: patient Mode of arrival: ambulatory Limitations: no limitations History of Present Illness HPI narrative: 24-year-old female who is A0 currently 13 weeks gestation and history of MS not currently taking any medications whom presents with complaint of States about the past 3 days she had noticed some bleeding upon wiping on the toilet paper from the vagina. States she has had this for 3 days which made her concerned so she went to [facility] which she had lab work done however she had no ultrasound and was not really clear on what is going on she was told that she might be having a miscarriage and 2 follow-up however states that she did not get a clear answer and she still is having bleeding only upon wiping. States there is some mild low abdominal cramping but no nausea vomiting or diarrhea. No pain at this time. Off note upon review of her chart it appears that patient was seen here on May 27 in this emergency room where she had a workup including ultrasound Prior to that she was seen on May 17 for similar symptoms. She is currently awaiting OBGYN f/u at [facility]. Onset (ago): day(s) (Three days) Exacerbating factors: none Related Data Previous Rx's Medication Instructions Recorded besifloxacin [Besivance] 1 drp OPHTHALMIC (EYE) TID 7 Days 03/26/20 ml besifloxacin [Besivance] 1 drp OPHTHALMIC (EYE) TID 7 Days 03/27/20 ml amoxicillin 500 mg PO BID #14 cap 04/01/20 ibuprofen 800 mg PO Q8H PRN #20 tab 04/01/20 nitrofurantoin monohyd/m-cryst 100 mg PO BID #10 cap 05/17/20 [Macrobid] cefixime 400 mg PO DAILY 5 Days #5 cap 05/28/20 Allergies Allergy/AdvReac Type Severity Reaction Status Date / Time No Known Allergies Allergy Verified 03/26/20 23:27 Review of Systems Review of Systems: Constitutional: No Weight loss, No Fever, No Chills, No Night Sweats, No Fatigue, No Malaise ENT/Mouth: No Hearing loss, No Ear Pain, No Nasal Congestion, No Sinus Pain, No Hoarseness, No sore throat, No Rhinorrhea, No Swallowing Difficulty Eyes: No Eye Pain, No Swelling, No Redness, No Foreign Body, No Discharge, No Vision Changes Cardiovascular: No Chest Pain, No SOB, No Dyspnea on Exertion, No Orthopnea, No Edema, No Palpitations Respiratory: No Cough, No Sputum, No Wheezing, No Smoke Exposure, No Dyspnea Gastrointestinal: No Nausea, No Vomiting, No Diarrhea, No Constipation, No abdominal Pain, No Hematochezia, No Melena Genitourinary: As noted in HPI , No Dysuria, No Urinary Frequency, No Hematuria, No Urinary Incontinence, No Urgency, No Flank Pain, No Urinary Flow Changes, No Hesitancy Musculoskeletal: No joint pain, No Myalgias, No Joint Swelling Skin: No Skin Lesions, No rash Neuro: No Weakness, No Numbness, No Paresthesias, No Loss of Consciousness, No Dizziness, No Headache Psych: No Anxiety/Panic, No Depression, No SI/HI/AH/VH, No Social Issues Heme/Lymph: No Bruising, No Bleeding,No Lymphadenopathy Endocrine: No Polyuria, No Polydipsia, No Temperature Intolerance Yes all other systems are reviewed and are negative [facility] Past Medical History Medical History Multiple sclerosis Family History Family History Mother Hypertension Diabetes Father Hypertension Maternal Grandmother Diabetes Social History Social History Alcohol intake: unknown Smoking Status: Never smoker Advance Directives: No Advance Directives Information Provided: Yes Physical Exam Vital Signs: Vital Signs: Last Vital Signs Temp 97 F 06/17/20 14:07 Pulse 65 06/17/20 18:00 Resp 18 06/17/20 18:00 BP 106/62 06/17/20 18:00 Pulse Ox 100 06/17/20 18:00 Body Mass Index 31.4 Reviewed Const: General: cooperative and healthy appearing; No acute distress or intoxicated appearing Nutritional Appearance: average body habitus Orientation/consciousness: patient oriented x3 HENMT: Head: Yes normal to inspection Ears: hearing grossly normal bilaterally Eyes: General: appearance normal, both eyes and all related structures Visual Hartmann: normal visual hartmann by confrontation Neck: Neck: Yes normal visual inspection and No tender Thyroid: Thyroid normal Chest: Chest palpation & inspection: normal inspection of the chest Resp: Effort & Inspection: normal respiratory effort Auscultation: clear to auscultation bilaterally Cardio: Jugular venous distension: no JVD Rhythm: regular rhythm Heart sounds: S1 normal heart sound present and S2 normal heart sound present GI: Inspection: Yes normal to inspection Palpation (GI): Soft to palpation, nontender and no guarding Percussion: Yes normal to percussion Auscultation: normal bowel sounds : General: Yes no CVA tenderness Back/Spine/Pelvis: Back: no CVA tenderness Skin: General skin exam: no rashes or lesions noted Neuro: General: patient oriented x3 Extrem: General: Yes normal to inspection Course Course Course Narrative: In review 24-year-old female with history of MS who is A0 currently 13 weeks gestation presenting with spotting like bleeding ongoing for the past 3 days it appears that today would be a total of 4th visit to 2 different emergency rooms for similar symptoms. Patient clinically appears to be more anxious that she was given a clear answer whether she had a miscarriage in now with the spotting and she did have ultrasound at [facility] where she had a full pelvic exam and told about possible miscarriage. On exam patient has no bleeding currently. Abdominal exam is benign. No pain discomfort at this time. She is Rh positive does does not require treatment with RhoGAM. Records requested from [facility]. At this time will check labs repeat 1st trimester ultrasound. Counseled patient on SAB vs some normal variants of spotting in the 1st trimester. Reevaluation(s) Reevaluation #1: H&H is very much similar to previous visits. Compressive metabolic profile without any significant derangement. 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 At this time I have discussed this with her and seemed to be chronic and does not require any further antibiotics will send the urine for culture again. Case was discussed with attending agreeable. Copy of her ultrasound was provided to work shows Normal-appearing single fetus with mean gestational age estimated by ultrasound at 13 weeks with an GRETCHEN of 12/23/2020. By the patient's first ultrasound, GRETCHEN was essentially the same at 12/24/2020. Patient is educated on possible SAB, home care, return instructions. I did give her Dr. 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 Patient is agreeable and comfortable plan. Stable for discharge. Medical Decision Making Lab Data Result diagrams: 06/17/20 16:49 06/17/20 16:49 Labs: Lab Results 06/17/20 06/17/20 06/17/20 Range/Units 16:49 16:49 16:49 WBC 7.4 (4.8-10.8) X10*3/uL RBC 5.06 (4.20-5.50) X10*6/uL Hgb 10.9 L (12.0-16.0) g/dl Hct 36.7 L (37-47) % MCV 72.5 L (80-98) fL MCH 21.5 L (27.0-33.0) pg MCHC 29.7 L (31.0-35.0) g/dl RDW 21.7 H (11.0-16.0) % Plt Count 245 (160-400) X10*3/uL MPV 10.3 (9.4-12.3) fL Immature Gran % (Auto) 0.3 (0.0-0.4) % Neut % (Auto) 69.9 (45-73) % Lymph % (Auto) 18.8 L (20-40) % [place] % (Auto) 9.0 (2-11) % Eos % (Auto) 1.7 (0-4) % Baso % (Auto) 0.3 (0-2) % Lymph # (Auto) 1.4 (1.2-4.9) X10*3/uL [place] # (Auto) 0.7 (0.1-1.2) X10*3/uL Eos # (Auto) 0.1 (0.0-0.4) X10*3/uL Baso # (Auto) 0.0 (0.0-0.2) X10*3/uL Abs Immat Gran (auto) 0.02 (0.00-0.03) X10*3/uL Absolute Neuts (auto) 5.2 (2.0-8.3) X10*3/uL Absolute Nucleated RBC 0.000 (0.0-0.012) X10*3/uL Nucleated RBC % (auto) 0.0 (0.0-0.2) /100WBC PT 13.4 H (10.8-13.0) SEC INR 1.1 (0.9-1.1) APTT 31.0 (24.1-38.0) SEC Sodium 133 L (135-145) mmol/L Potassium 4.3 (3.3-5.1) mmol/l Chloride 103 (96-108) mmol/L Carbon Dioxide 22 (22-29) mmol/L Anion Gap 12 (12-20) BUN 6 L (9-16) mg/dL Creatinine 0.64 (0.5-1.4) mg/dL Estim Creat Clear Calc 151.8 Estimated GFR > 60 Random Glucose 80 (60-115) mg/dL Calcium 8.8 (8.4-10.2) mg/dL Total Bilirubin 0.4 (0.0-1.0) mg/dL AST 15 (5-31) U/L ALT 6 (0-31) U/L Alkaline Phosphatase 38 L D (39-117) U/L Total Protein 6.9 (6.5-8.0) g/dL Albumin 3.9 (3.5-5.0) g/dL Urine Color Urine Appearance Urine pH (5.0-8.0) Ur Specific [place] (1.005-1.025) Urine Protein (NEG-TRACE) MG/DL Urine Glucose (UA) (NEG) MG/DL Urine Ketones (NEG) MG/DL Urine Blood (NEG) Urine Nitrite (NEG) Ur Leukocyte Esterase (NEG) Urine RBC (0) /HPF Urine WBC (0-4) /HPF Ur Squamous Epith Cells /LPF Urine Bacteria /LPF Urine Test (NEGATIVE) 06/17/20 Range/Units 16:49 WBC (4.8-10.8) X10*3/uL RBC (4.20-5.50) X10*6/uL Hgb (12.0-16.0) g/dl Hct (37-47) % MCV (80-98) fL MCH (27.0-33.0) pg MCHC (31.0-35.0) g/dl RDW (11.0-16.0) % Plt Count (160-400) X10*3/uL MPV (9.4-12.3) fL Immature Gran % (Auto) (0.0-0.4) % Neut % (Auto) (45-73) % Lymph % (Auto) (20-40) % [place] % (Auto) (2-11) % Eos % (Auto) (0-4) % Baso % (Auto) (0-2) % Lymph # (Auto) (1.2-4.9) X10*3/uL [place] # (Auto) (0.1-1.2) X10*3/uL Eos # (Auto) (0.0-0.4) X10*3/uL Baso # (Auto) (0.0-0.2) X10*3/uL Abs Immat Gran (auto) (0.00-0.03) X10*3/uL Absolute Neuts (auto) (2.0-8.3) X10*3/uL Absolute Nucleated RBC (0.0-0.012) X10*3/uL Nucleated RBC % (auto) (0.0-0.2) /100WBC PT (10.8-13.0) SEC INR (0.9-1.1) APTT (24.1-38.0) SEC Sodium (135-145) mmol/L Potassium (3.3-5.1) mmol/l Chloride (96-108) mmol/L Carbon Dioxide (22-29) mmol/L Anion Gap (12-20) BUN (9-16) mg/dL Creatinine (0.5-1.4) mg/dL Estim Creat Clear Calc Estimated GFR Random Glucose (60-115) mg/dL Calcium (8.4-10.2) mg/dL Total Bilirubin (0.0-1.0) mg/dL AST (5-31) U/L ALT (0-31) U/L Alkaline Phosphatase (39-117) U/L Total Protein (6.5-8.0) g/dL Albumin (3.5-5.0) g/dL Urine Color YELLOW Urine Appearance HAZY Urine pH 7.0 (5.0-8.0) Ur Specific [place] 1.025 (1.005-1.025) Urine Protein NEG (NEG-TRACE) MG/DL Urine Glucose (UA) NEG (NEG) MG/DL Urine Ketones 5 (NEG) MG/DL Urine Blood 3+ H (NEG) Urine Nitrite NEG (NEG) Ur Leukocyte Esterase TRACE H (NEG) Urine RBC 1-4 (0) /HPF Urine WBC 5-9 H (0-4) /HPF Ur Squamous Epith Cells 1+ /LPF Urine Bacteria 1+ /LPF Urine Test POSITIVE H (NEGATIVE) Discharge Plan Discharge Clinical Impression: Vaginal spotting, Patient Disposition: Home, Self-Care Instructions: First Trimester (ED), Threatened Miscarriage (ED) Additional Instructions: Please continue taking vitamin as discussed Avoid any strenuous activity Avoid any sexual contact Follow-up with your OBGYN in the next 1-2 days, call Dr. Bradley's office for follow-up Return to emergency room if any concerns or worsening symptoms Thank you Prescriptions: No Action Besivance 0.6 % drops,suspension 1 drp ophthalmic (eye) TID 7 Days RF: 0 Besivance 0.6 % drops,suspension 1 drp ophthalmic (eye) TID 7 Days RF: 0 nitrofurantoin monohyd/m-cryst [Macrobid] 100 mg capsule 100 mg PO BID Qty: 10 RF: 0 amoxicillin 500 mg capsule 500 mg PO BID Qty: 14 RF: 0 ibuprofen 800 mg tablet 800 mg PO Q8H PRN (Reason: pain) Qty: 20 RF: 0 cefixime 400 mg capsule 400 mg PO DAILY 5 Days Qty: 5 RF: 0 Referrals: King Bradley MD [Physician] - 2 days
== END 2020-06-17 19:27 | disposition home or self-care (01) ==
PROVIDERS: Nurse Practitioner Primary Care; Emergency Provider Emergency Medicine
DX: O26.851 Spotting complicating pregnancy, first trimester (principal); O99.351 Diseases of the nervous system complicating pregnancy, first trimester; G35 Multiple sclerosis; Z3A.13 13 weeks gestation of pregnancy
CPT/HCPCS: 36415; 76801; 80053; 81001; 81025; 85025; 85610; 85730; 87086; 99284

== ENCOUNTER → 2020-06-23 13:42 | Outpatient (BNVA) | payer OTHER, SELFPAY | PROVIDERS: Visit Provider Advanced Practice Midwife | DX: Z76.89 Persons encountering health services in other specified circumstances (principal) ==

== ENCOUNTER → 2020-07-09 09:31 | Outpatient (BNVA) | payer OTHER, SELFPAY | PROVIDERS: Visit Provider Advanced Practice Midwife | DX: Z13.89 Encounter for screening for other disorder (principal) | CPT/HCPCS: 99212 ==

== ENCOUNTER 2020-07-20 11:05 | Outpatient (REF) | payer OTHER, SELFPAY ==
[2020-07-20 14:03] LABS: MANUAL DIFF FLAG NO
[2020-07-20 14:14] LABS: Basophils Percent Auto 0.4 % (0-2); Eosinophils Percent Auto 0.5 % (0-4); Hematocrit 32.4 % (37-47); Hemoglobin 10.1 g/dl (12.0-16.0); Imm Gran Abs Auto 0.04 X10*3/uL (0.00-0.03); Imm Gran Pct Auto 0.5 % (0.0-0.4); Lymphocytes Absolute Auto 1.4 X10*3/uL (1.2-4.9); Lymphocytes Percent Auto 18.1 % (20-40); Mean Corpuscular HGB Conc 31.2 g/dl (31.0-35.0); Mean Corpuscular Hemoglobin 22.7 pg (27.0-33.0); Mean Corpuscular Volume 72.8 fL (80-98); Mean Platelet Volume 10.7 fL (9.4-12.3); Monocytes Absolute Auto 0.7 X10*3/uL (0.1-1.2); Monocytes Percent Auto 8.2 % (2-11); Neutrophils Absolute Auto 5.7 X10*3/uL (2.0-8.3); Neutrophils Percent Auto 72.3 % (45-73); Platelet Count 235 X10*3/uL (160-400); Red Blood Count 4.45 X10*6/uL (4.20-5.50); Red Cell Distribution Width 17.6 % (11.0-16.0); White Blood Count 7.9 X10*3/uL (4.8-10.8)
[2020-07-20 14:52] LABS: Amphetamine Screen Urine Not Detected (Not Detect); Barbiturates, Urine Not Detected (Not Detect); Benzodiazepines Screen Urine Not Detected (Not Detect); Cannabinoid Screen Urine Not Detected (Not Detect); Cocaine Screen Urine Not Detected (Not Detect); Opiate Screen Urine Not Detected (Not Detect); Phencyclidine Screen Urine Not Detected (Not Detect)
[2020-07-21 08:04] LABS: Syphilis Screen Nonreactive (Nonreactive)
[2020-07-21 08:58] LABS: HBsAGNum1 0.21 S/CO (0.00-0.99); HIV AB/AG Nonreactive (Nonreactive); HIV Num 1 0.18 S/CO (0.00-0.99); Hepatitis B Surface Antigen Negative (Negative); ~HepC Num1 0.13 S/CO (0.00-0.79); ~Hepatitis C Antibody Nonreactive (Nonreactive)
[2020-07-21 09:07] LABS: Varicella IgG Antibody >4000.00 index
[2020-07-21 09:48] LABS: BV Int Neg Control Negative (Negative); BV Int Pos Control Positive (Positive)
[2020-07-21 19:02] LABS: C. trachomatis RNA TMA NOT DETECTED (NOT DETECTED); N. gonorrhoeae RNA TMA NOT DETECTED (NOT DETECTED)
== END 2020-07-20 11:06 | disposition home or self-care (01) ==
LOC: HO.LAB 11:05
PROVIDERS: Advanced Practice Midwife; Visit Provider Advanced Practice Midwife
DX: O98.819 Other maternal infectious and parasitic diseases complicating pregnancy, unspecified trimester (principal); B37.3 Candidiasis of vulva and vagina
CPT/HCPCS: 80307; 81003; 85025; 86762; 86780; 86787; 86803; 86850; 86900; 86901; 87086; 87340; 87389; 87480; 87491; 87510; 87591; 87660; 88142; 99212

== ENCOUNTER 2020-07-21 12:48 | Outpatient (REF) | payer OTHER, SELFPAY | END 2020-07-21 12:49 | disposition home or self-care (01) | LOC: HO.LAB 12:48 | PROVIDERS: Visit Provider Advanced Practice Midwife | DX: Z13.89 Encounter for screening for other disorder (principal) ==

== ENCOUNTER 2020-07-30 12:27 | Outpatient (REF) | payer OTHER, SELFPAY ==
--- NOTE | ~2020-07-30 | US_ITS ---
EXAMINATION: US OBSTETRICAL CLINICAL INFORMATION: 24-year-old at 19.0 weeks of gestation Screening for malformation COMPARISON: 06/17/2020 TECHNIQUE: Real-time transabdominal ultrasound was performed using C1-5 megahertz transducer. FINDINGS: A single, active, fetus is seen in vertex presentation. The placenta is fundal without previa, and the amniotic fluid volume is wnl. MEASUREMENTS: 1. Biparietal Diameter: 4.43 cm; 19.3 wks 2. Occipital Frontal Diameter: 5.7 cm 3. Head Circumference: 16.4 cm; 19.2 wks 4. Abdominal Circumference: 13.4 cm; 19.0 wks 5. Femur Length: 3.0 cm; 19.2 wks 6. Humerus Length: 2.8 cm; 19 point wks 7. Tibia Length: 2.6 cm; 19.1 wks 8. Ulna Length: 2.54 cm; 19.2 wks 9. Lateral ventricle: 0.53 cm 10. Cerebellum: 1.94 cm; 20.0 wks 11. Cisterna Magna: 0.38 cm 12. Nuchal Fold: 2.93 mm 13. Heart Rate: 155 beats per minute Rt ovary: normal Lt ovary: normal Cervical length 3.2 cm on T/A. GESTATIONAL AGE: 1. Established GA: 19.0 wks 2. GA from [facility]: 19.2 wks ESTIMATED DATE OF DELIVERY: 1. Established GRETCHEN: 12/24/2020 2. GRETCHEN from [facility]: 12/22/2020 ANATOMY: The visualized anatomy includes but not limited to: 1. Cranium: Normal 2. Intracranial anatomy: cavum septum pellucidi, lateral ventricles, choroid plexus, cerebellum, posterior fossa, third and fourth ventricles. 3. face: orbits, lip/palate, profile, nasal bone 4. Heart: four-chamber view of the heart, ventricular septum, foramen ovale, pulmonary vein, left and right outflow tracts, three-vessel view, 3 vessel trachea view, aortic and ductal arches, situs.. 5. Diaphragm: Normal 6. Abdominal wall: Normal 7. Cord Insertion: Normal 8. Spine: Cervical, thoracic, lumbar, sacral. 9. Stomach: Normal size and shape 10. Right Kidney: Normal 11. Left Kidney: Normal 12. 3 vessel cord: Normal 13. Upper extremity: Open hands, fifth digit. 14. Lower extremity: Tibia, fibula, bilateral feet. 15. Bladder: Normal 16. Genitalia: Female, patient aware US/US OB /maternal detail IMPRESSION: 1. Single, living, intrauterine with appropriate biometry. 2. Normal survey DISCUSSION: I reviewed today's ultrasound findings. We discussed the limitations of ultrasound in diagnosing aneuploidy and other congenital abnormalities. I reviewed the differences between screening test and diagnostic test. Amniocentesis was discussed and declined. She was informed that the baseline incidence of congenital abnormalities is approximately 3-5%. Not all these conditions are diagnosable in utero. RECOMMENDATIONS: Thank you for allowing me to participate in her care. Visiting time 20 minutes. Majority of this visit was spent reviewing and discussing her care.
== END 2020-07-30 12:28 | disposition home or self-care (01) ==
LOC: HO.US 12:27
PROVIDERS: Visit Provider Advanced Practice Midwife
DX: O35.8XX0 Maternal care for other (suspected) fetal abnormality and damage, not applicable or unspecified (principal); O99.352 Diseases of the nervous system complicating pregnancy, second trimester; G35 Multiple sclerosis; Z3A.19 19 weeks gestation of pregnancy
CPT/HCPCS: 76811

== ENCOUNTER → 2020-08-17 13:45 | Outpatient (BNVA) | payer OTHER, SELFPAY | PROVIDERS: Visit Provider Advanced Practice Midwife | DX: O36.8390 Maternal care for abnormalities of the fetal heart rate or rhythm, unspecified trimester, not applicable or unspecified (principal) | CPT/HCPCS: 81003; 99212 ==

== ENCOUNTER 2020-08-20 10:53 | Outpatient (REF) | payer OTHER, SELFPAY ==
--- NOTE | ~2020-08-20 | US_ITS ---
EXAMINATION: OBSTETRICAL ULTRASOUND, Follow up HISTORY: 23-year-old at the 22.0 weeks of gestation arrhythmia COMPARISON: 07/30/2020 TECHNIQUE: Real time transabdominal imaging with color and M-mode Doppler. PRESENTATION: Variable PLACENTA LOCATION: Anterior without previa AMNIOTIC FLUID: Normal MEASUREMENTS: 1. Biparietal Diameter: 4.9 cm; 21.0 wks 2. Head Circumference: 19.0 cm; 21.3 wks 3. Abdominal Circumference: 16.5 cm; 21.4 wks 4. Femur Length: 3.7 cm; 21.5 wks 5. Heart Rate: 152 beats per minute. Brief bradycardia into the 50s but quickly recovered. WEIGHT: Estimated weight is 431 grams (0 lbs 15 oz) -- 22 %. Normal views of lateral cerebral ventricle, profile, nose/lips, 4ch view, LVOT, RVOT, gender. The M-mode evaluation of the heart showed that normal sinus rate at the 1 32 bpm. The heart rate remained stable during two minutes of continuous observation. No bradycardia or arrhythmia was detected. No evidence of hydrops. GESTATIONAL AGE: 1. Established GA: 22.0 wks 2. GA from [facility]: 21.3 wks ESTIMATED DATE OF DELIVERY: 1. Established GRETCHEN: 12/24/2020 2. GRETCHEN from [facility]: 12/28/2020 US/US OB follow up IMPRESSION: 1. A single fetus with appropriate interval growth. 2. Intermittent, transient sinus bradycardia -- normal variant 3. No evid of hydrops I reviewed the findings on ultrasound. Reassured her that the intermittent the sinus bradycardia can be a normal occurrence. There is no evidence of a sustained the bradycardia were evidence of cardiac compromise. Even in the setting of intermittent arrhythmia, as long as there is no evidence of the hydrops, expectant management is recommended. She informs me that she has MS. Currently, not no treatment. Denies hx of lupus. Rarely Sjogren's antibody ([place]) can cause complete heart block, but would be a highly unusual in a patient who does not have lupus. Suggest screening with [facility] if not done already. RECOMMENDATIONS: 1. f/u PRN Thank you very much for this referral. Visiting time 30 minutes. Majority of this visit was spent reviewing the ultrasound findings as well as her care.
== END 2020-08-20 10:54 | disposition home or self-care (01) ==
LOC: HO.US 10:53
PROVIDERS: Visit Provider Advanced Practice Midwife
DX: O36.8390 Maternal care for abnormalities of the fetal heart rate or rhythm, unspecified trimester, not applicable or unspecified (principal); Z3A.00 Weeks of gestation of pregnancy not specified
CPT/HCPCS: 76816

== ENCOUNTER → 2020-09-15 13:07 | Outpatient (BNVA) | payer OTHER, SELFPAY | PROVIDERS: Visit Provider Advanced Practice Midwife | DX: Z34.90 Encounter for supervision of normal pregnancy, unspecified, unspecified trimester (principal); Z3A.25 25 weeks gestation of pregnancy | CPT/HCPCS: 81003; 99212 ==

== ENCOUNTER 2020-10-06 13:20 | Outpatient (REF) | payer OTHER, SELFPAY ==
[2020-10-06 14:42] LABS: MANUAL DIFF FLAG NO
[2020-10-06 14:46] LABS: Basophils Percent Auto 0.3 % (0-2); Eosinophils Percent Auto 0.3 % (0-4); Hematocrit 31.8 % (37-47); Hemoglobin 9.5 g/dl (12.0-16.0); Imm Gran Abs Auto 0.05 X10*3/uL (0.00-0.03); Imm Gran Pct Auto 0.5 % (0.0-0.4); Lymphocytes Absolute Auto 1.5 X10*3/uL (1.2-4.9); Lymphocytes Percent Auto 13.4 % (20-40); Mean Corpuscular HGB Conc 29.9 g/dl (31.0-35.0); Mean Corpuscular Hemoglobin 21.8 pg (27.0-33.0); Mean Corpuscular Volume 73.1 fL (80-98); Mean Platelet Volume 10.8 fL (9.4-12.3); Monocytes Absolute Auto 0.8 X10*3/uL (0.1-1.2); Monocytes Percent Auto 7.7 % (2-11); Neutrophils Absolute Auto 8.5 X10*3/uL (2.0-8.3); Neutrophils Percent Auto 77.8 % (45-73); Platelet Count 235 X10*3/uL (160-400); Red Blood Count 4.35 X10*6/uL (4.20-5.50); Red Cell Distribution Width 14.8 % (11.0-16.0)
[2020-10-06 15:23] LABS: Syphilis Screen Nonreactive (Nonreactive)
[2020-10-06 17:06] LABS: Glucose 1 Hour PP 50gm Dose 126 mg/dL (60-140)
== END 2020-10-06 13:21 | disposition home or self-care (01) ==
LOC: HO.LAB 13:20
PROVIDERS: Visit Provider Obstetrics & Gynecology
DX: O26.893 Other specified pregnancy related conditions, third trimester (principal); R51.9 Headache, unspecified; Z11.3 Encounter for screening for infections with a predominantly sexual mode of transmission; Z3A.28 28 weeks gestation of pregnancy
CPT/HCPCS: 36415; 85025; 86780; 99212

== ENCOUNTER → 2020-10-20 14:29 | Outpatient (BNVA) | payer OTHER, SELFPAY | PROVIDERS: Visit Provider Advanced Practice Midwife | DX: O36.8190 Decreased fetal movements, unspecified trimester, not applicable or unspecified (principal); O99.613 Diseases of the digestive system complicating pregnancy, third trimester; K59.00 Constipation, unspecified; Z79.899 Other long term (current) drug therapy; Z87.891 Personal history of nicotine dependence; Z3A.30 30 weeks gestation of pregnancy | CPT/HCPCS: 59025; 81003; 99212 ==

== ENCOUNTER 2020-10-22 13:07 | Outpatient (REF) | payer OTHER, SELFPAY ==
--- NOTE | ~2020-10-22 | US_ITS ---
EXAMINATION: OBSTETRICAL ULTRASOUND, Follow up HISTORY: A 23-year-old at the 31.0 weeks of gestation Size date discrepancy COMPARISON: 08/20/2020 TECHNIQUE: Real time transabdominal imaging with color and M-mode Doppler. PRESENTATION: Vertex PLACENTA LOCATION: Fundal/anterior without previa AMNIOTIC FLUID: TALA: 11.7 cm MEASUREMENTS: 1. Biparietal Diameter: 7.4 cm; 29.6 wks 2. Head Circumference: 28.1 cm; 30.6 wks 3. Abdominal Circumference: 25.2 cm; 29.4 wks 4. Femur Length: 5.9 cm; 30.6 wks 5. Heart Rate: 152 beats per minute WEIGHT: EFW: 1492 grams (3 lbs 5 oz) -- 12 %. BIOPHYSICAL PROFILE: Motion: 2 Tone: 2 Breathin Amniotic Fluid: 2 Total score: 8/8 Doppler: UA S/D 3.0 GESTATIONAL AGE: 1. Established GA: 31.0 wks 2. GA from [facility]: 30.2 wks ESTIMATED DATE OF DELIVERY: 1. Established GRETCHEN: 12/24/2020 2. GRETCHEN from [facility]: 12/29/2020 US/US OB velocimetry umbilical ar IMPRESSION: 1. A single active fetus is in vertex presentation 2. Size equals dates, EFW corresponds to 12th percentile. 3. Reassuring BPP with normal amniotic fluid index 4. Normal umbilical artery SD ratio Thank you very much for this referral. Suggest a repeat the interval growth in approximately 3 weeks. This note was generated with a voice recognition program. Please excuse any errors which may have been overlooked during my review of this note. Sometimes these errors may affect the content or meaning of a given sentence.
--- NOTE | ~2020-10-22 | US_ITS ---
EXAMINATION: OBSTETRICAL ULTRASOUND, Follow up HISTORY: A 23-year-old at the 31.0 weeks of gestation Size date discrepancy COMPARISON: 08/20/2020 TECHNIQUE: Real time transabdominal imaging with color and M-mode Doppler. PRESENTATION: Vertex PLACENTA LOCATION: Fundal/anterior without previa AMNIOTIC FLUID: TALA: 11.7 cm MEASUREMENTS: 1. Biparietal Diameter: 7.4 cm; 29.6 wks 2. Head Circumference: 28.1 cm; 30.6 wks 3. Abdominal Circumference: 25.2 cm; 29.4 wks 4. Femur Length: 5.9 cm; 30.6 wks 5. Heart Rate: 152 beats per minute WEIGHT: EFW: 1492 grams (3 lbs 5 oz) -- 12 %. BIOPHYSICAL PROFILE: Motion: 2 Tone: 2 Breathin Amniotic Fluid: 2 Total score: 8/8 Doppler: UA S/D 3.0 GESTATIONAL AGE: 1. Established GA: 31.0 wks 2. GA from [facility]: 30.2 wks ESTIMATED DATE OF DELIVERY: 1. Established GRETCHEN: 12/24/2020 2. GRETCHEN from [facility]: 12/29/2020 US/US OB follow up IMPRESSION: 1. A single active fetus is in vertex presentation 2. Size equals dates, EFW corresponds to 12th percentile. 3. Reassuring BPP with normal amniotic fluid index 4. Normal umbilical artery SD ratio Thank you very much for this referral. Suggest a repeat the interval growth in approximately 3 weeks. This note was generated with a voice recognition program. Please excuse any errors which may have been overlooked during my review of this note. Sometimes these errors may affect the content or meaning of a given sentence.
== END 2020-10-22 13:08 | disposition home or self-care (01) ==
LOC: HO.HMGCX 13:07
PROVIDERS: Visit Provider Advanced Practice Midwife
DX: O36.8130 Decreased fetal movements, third trimester, not applicable or unspecified (principal); O26.843 Uterine size-date discrepancy, third trimester; Z3A.31 31 weeks gestation of pregnancy
CPT/HCPCS: 76816; 76820

== ENCOUNTER → 2020-11-09 08:35 | Outpatient (BNVA) | payer OTHER, SELFPAY | PROVIDERS: Visit Provider Advanced Practice Midwife | DX: O36.63X0 Maternal care for excessive fetal growth, third trimester, not applicable or unspecified (principal); Z3A.33 33 weeks gestation of pregnancy | CPT/HCPCS: 81003; 99212 ==

== ENCOUNTER 2020-11-12 13:50 | Outpatient (REF) | payer OTHER, SELFPAY ==
--- NOTE | ~2020-11-12 | US_ITS ---
EXAMINATION: OBSTETRICAL ULTRASOUND, Follow up HISTORY: 25-year-old at the 34.0 weeks of gestation Small for gestational age COMPARISON: 10/22/2020 TECHNIQUE: Real time transabdominal imaging with color and M-mode Doppler. PRESENTATION: Vertex PLACENTA LOCATION: Anterior without previa AMNIOTIC FLUID: ATLA 10.5 cm MEASUREMENTS: 1. Biparietal Diameter: 8.0 cm; 32.3 wks 2. Head Circumference: 30.5 cm; 34.0 wks 3. Abdominal Circumference: 28.4 cm; 32.3 wks 4. Femur Length: 6.5 cm; 33.5 wks 5. Heart Rate: 150 beats per minute WEIGHT: EFW: 2081 grams (4 lbs 9 oz) -- 16 %. BIOPHYSICAL PROFILE: Motion: 2 Tone: 2 Breathin Amniotic Fluid: 2 Total score: 8/8 UA Doppler showed the SD ratio of 2.8 which is stable and within normal limits. GESTATIONAL AGE: 1. Established GA: 34.0 wks 2. GA from [facility]: 33.1 wks ESTIMATED DATE OF DELIVERY: 1. Established GRETCHEN: 12/24/2020 2. GRETCHEN from [facility]: 12/30/2020 US/US OB velocimetry umbilical ar IMPRESSION: 1. A single active fetus is in vertex presentation 2. Size equals dates, appropriate interval growth 3. Reassuring biophysical profile 4. Normal UA Doppler SD ratio Thank you very much for this referral. This note was generated with a voice recognition program. Please excuse any errors which may have been overlooked during my review of this note. Sometimes these errors may affect the content or meaning of a given sentence.
--- NOTE | ~2020-11-12 | US_ITS ---
EXAMINATION: OBSTETRICAL ULTRASOUND, Follow up HISTORY: 25-year-old at the 34.0 weeks of gestation Small for gestational age COMPARISON: 10/22/2020 TECHNIQUE: Real time transabdominal imaging with color and M-mode Doppler. PRESENTATION: Vertex PLACENTA LOCATION: Anterior without previa AMNIOTIC FLUID: TALA 10.5 cm MEASUREMENTS: 1. Biparietal Diameter: 8.0 cm; 32.3 wks 2. Head Circumference: 30.5 cm; 34.0 wks 3. Abdominal Circumference: 28.4 cm; 32.3 wks 4. Femur Length: 6.5 cm; 33.5 wks 5. Heart Rate: 150 beats per minute WEIGHT: EFW: 2081 grams (4 lbs 9 oz) -- 16 %. BIOPHYSICAL PROFILE: Motion: 2 Tone: 2 Breathin Amniotic Fluid: 2 Total score: 8/8 UA Doppler showed the SD ratio of 2.8 which is stable and within normal limits. GESTATIONAL AGE: 1. Established GA: 34.0 wks 2. GA from [facility]: 33.1 wks ESTIMATED DATE OF DELIVERY: 1. Established GRETCHEN: 12/24/2020 2. GRETCHEN from [facility]: 12/30/2020 US/US OB follow up IMPRESSION: 1. A single active fetus is in vertex presentation 2. Size equals dates, appropriate interval growth 3. Reassuring biophysical profile 4. Normal UA Doppler SD ratio Thank you very much for this referral. This note was generated with a voice recognition program. Please excuse any errors which may have been overlooked during my review of this note. Sometimes these errors may affect the content or meaning of a given sentence.
== END 2020-11-12 13:51 | disposition home or self-care (01) ==
LOC: HO.US 13:50
PROVIDERS: Visit Provider Advanced Practice Midwife
DX: Z03.74 Encounter for suspected problem with fetal growth ruled out (principal)
CPT/HCPCS: 76816; 76820

== ENCOUNTER → 2020-11-23 08:34 | Outpatient (BNVA) | payer OTHER, SELFPAY | PROVIDERS: Visit Provider Advanced Practice Midwife | DX: Z34.93 Encounter for supervision of normal pregnancy, unspecified, third trimester (principal); Z03.74 Encounter for suspected problem with fetal growth ruled out; Z3A.35 35 weeks gestation of pregnancy | CPT/HCPCS: 99212 ==

== ENCOUNTER 2020-12-01 11:03 | Outpatient (REF) | payer OTHER, SELFPAY ==
--- NOTE | ~2020-12-01 | US_ITS ---
EXAMINATION: US OBSTETRICAL (BIOPHYSICAL PROFILE) CLINICAL INFORMATION: Nonreactive stress test. COMPARISON: Ultrasound OB 11/12/2020 TECHNIQUE: Ultrasound of the pelvis is performed. Biophysical profile is performed over 30 minutes with assessment of breathing, gross body movement, tone, and qualitative amniotic fluid volume. Each matrix is scored 0 or 2, depending if the metric is present. Maximum total score possible is 8. Examination is not intended to assess for anomalies. FINDINGS: POSITION: Cephalic PLACENTA: Anterior AMNIOTIC FLUID INDEX: 8.62 cm CARDIAC ACTIVITY: 142 beats per minute BIOPHYSICAL PROFILE: Motion: 2 Tone: 2 Breathin Amniotic Fluid: 2 Total score: 8 US/US OB biophysical profile IMPRESSION: 1. Single intrauterine gestation in phallic position with anterior placenta. 2. Total biophysical score is 8/8 (scale 0-8). 3. Amniotic fluid index 8.62 cm. 4. cardiac activity 142 beats per minute.
[2020-12-02 02:21] LABS: CT PCR NOT DETECTED (Not Detect.); NG PCR NOT DETECTED (Not Detect.)
[2020-12-02 09:40] LABS: BV Int Neg Control Negative (Negative); BV Int Pos Control Positive (Positive)
== END 2020-12-01 11:04 | disposition home or self-care (01) ==
LOC: HO.LAB 11:03
PROVIDERS: Visit Provider Advanced Practice Midwife
DX: O26.893 Other specified pregnancy related conditions, third trimester (principal); R51.9 Headache, unspecified; O21.2 Late vomiting of pregnancy; Z3A.36 36 weeks gestation of pregnancy; Z20.2 Contact with and (suspected) exposure to infections with a predominantly sexual mode of transmission
CPT/HCPCS: 76819; 81003; 87081; 87147; 87480; 87491; 87510; 87591; 87660; 99212

== ENCOUNTER 2020-12-03 12:44 | Outpatient (REF) | payer OTHER, SELFPAY ==
--- NOTE | ~2020-12-03 | US_ITS ---
EXAMINATION: OBSTETRICAL ULTRASOUND, Follow up HISTORY: 25-year-old at the 37.0 weeks of gestation Small for gestational age COMPARISON: 12/01/2020 TECHNIQUE: Real time transabdominal imaging with color and M-mode Doppler. PRESENTATION: Vertex PLACENTA LOCATION: Anterior without previa AMNIOTIC FLUID: Within normal limits, D [employer]PER[employer]OR YARD 4.13 cm MEASUREMENTS: 1. Biparietal Diameter: 8.4 cm; 33.6 wks 2. Head Circumference: 31.5 cm; 35.3 wks 3. Abdominal Circumference: 29.9 cm; 33.6 wks 4. Femur Length: 7.0 cm; 36.1 wks 5. Heart Rate: 139 beats per minute WEIGHT: EFW: 2476 grams (5 lbs 7 oz) -- 8 %. BIOPHYSICAL PROFILE: Motion: 2 Tone: 2 Breathin Amniotic Fluid: 2 Total score: 8/8 UA Doppler: S/D 3.0 GESTATIONAL AGE: 1. Established GA: 37.0 wks 2. GA from [facility]: 34.2 wks ESTIMATED DATE OF DELIVERY: 1. Established GRETCHEN: 12/24/2020 2. GRETCHEN from [facility]: 01/12/2021 US/US OB follow up IMPRESSION: 1. A single active fetus is in vertex presentation. 2. Size less than dates, EFW corresponds to 8th percentile. Compared to previous ultrasound, there has been less than expected interval growth. 3. Reassuring biophysical profile with normal amniotic fluid volume. 4. Normal SD ratio in umbilical artery. The patient is complaining of increasing nausea and vomiting. Able to keep down minimal solids but has difficulty with him acid reflux and appetite. Denies weight loss. In addition she reports the decreased movement. I reviewed today's ultrasound findings and informed her that there has been less than expected interval growth. I also reviewed the limitations of ultrasound and estimating weight. The testing parameters are within normal limits. We discussed the risks and benefits of expectant management versus delivery. Given her symptoms as well as slightly less than expected interval growth, I suggest continuing weekly NST and biophysical profile and schedule for an induction of labor at approximately 38 weeks of gestation. Thank you very much for this referral. Total time 30 minutes. The time spent was devoted to counseling the patient about the disease and diagnosis, coordinating care including reviewing her records, pertinent lab data and studies, as well as discussing diagnostic evaluation and workup, plan therapeutic interventions and future disposition of care. This includes any additional research needed to obtain further information in formulating the plan of care of this patient. This note was generated with a voice recognition program. Please excuse any errors which may have been overlooked during my review of this note. Sometimes these errors may affect the content or meaning of a given sentence.
--- NOTE | ~2020-12-03 | US_ITS ---
EXAMINATION: OBSTETRICAL ULTRASOUND, Follow up HISTORY: 25-year-old at the 37.0 weeks of gestation Small for gestational age COMPARISON: 12/01/2020 TECHNIQUE: Real time transabdominal imaging with color and M-mode Doppler. PRESENTATION: Vertex PLACENTA LOCATION: Anterior without previa AMNIOTIC FLUID: Within normal limits, D CLAM GROWER 4.13 cm MEASUREMENTS: 1. Biparietal Diameter: 8.4 cm; 33.6 wks 2. Head Circumference: 31.5 cm; 35.3 wks 3. Abdominal Circumference: 29.9 cm; 33.6 wks 4. Femur Length: 7.0 cm; 36.1 wks 5. Heart Rate: 139 beats per minute WEIGHT: EFW: 2476 grams (5 lbs 7 oz) -- 8 %. BIOPHYSICAL PROFILE: Motion: 2 Tone: 2 Breathin Amniotic Fluid: 2 Total score: 8/8 UA Doppler: S/D 3.0 GESTATIONAL AGE: 1. Established GA: 37.0 wks 2. GA from [facility]: 34.2 wks ESTIMATED DATE OF DELIVERY: 1. Established GRETCHEN: 12/24/2020 2. GRETCHEN from [facility]: 01/12/2021 US/US OB velocimetry umbilical ar IMPRESSION: 1. A single active fetus is in vertex presentation. 2. Size less than dates, EFW corresponds to 8th percentile. Compared to previous ultrasound, there has been less than expected interval growth. 3. Reassuring biophysical profile with normal amniotic fluid volume. 4. Normal SD ratio in umbilical artery. The patient is complaining of increasing nausea and vomiting. Able to keep down minimal solids but has difficulty with him acid reflux and appetite. Denies weight loss. In addition she reports the decreased movement. I reviewed today's ultrasound findings and informed her that there has been less than expected interval growth. I also reviewed the limitations of ultrasound and estimating weight. The testing parameters are within normal limits. We discussed the risks and benefits of expectant management versus delivery. Given her symptoms as well as slightly less than expected interval growth, I suggest continuing weekly NST and biophysical profile and schedule for an induction of labor at approximately 38 weeks of gestation. Thank you very much for this referral. Total time 30 minutes. The time spent was devoted to counseling the patient about the disease and diagnosis, coordinating care including reviewing her records, pertinent lab data and studies, as well as discussing diagnostic evaluation and workup, plan therapeutic interventions and future disposition of care. This includes any additional research needed to obtain further information in formulating the plan of care of this patient. This note was generated with a voice recognition program. Please excuse any errors which may have been overlooked during my review of this note. Sometimes these errors may affect the content or meaning of a given sentence.
== END 2020-12-03 12:45 | disposition home or self-care (01) ==
LOC: HO.US 12:44
PROVIDERS: Visit Provider Advanced Practice Midwife
DX: O36.8190 Decreased fetal movements, unspecified trimester, not applicable or unspecified (principal); O36.5990 Maternal care for other known or suspected poor fetal growth, unspecified trimester, not applicable or unspecified
CPT/HCPCS: 76816; 76820

== ENCOUNTER → 2020-12-07 10:08 | Outpatient (BNVA) | payer OTHER, SELFPAY | PROVIDERS: Visit Provider Obstetrics & Gynecology | DX: O36.5930 Maternal care for other known or suspected poor fetal growth, third trimester, not applicable or unspecified (principal); Z3A.37 37 weeks gestation of pregnancy | CPT/HCPCS: 59025; 99212 ==

== ENCOUNTER 2020-12-07 11:44 | Outpatient (REF) | payer OTHER, SELFPAY ==
--- NOTE | ~2020-12-07 | US_ITS ---
EXAMINATION: US OBSTETRICAL (BIOPHYSICAL PROFILE) CLINICAL INFORMATION: Hypertension. Nonreactive stress test COMPARISON: Previous exam most recent 12/03/2020 TECHNIQUE: Ultrasound of the pelvis is performed. Biophysical profile is performed over 30 minutes with assessment of breathing, gross body movement, tone, and qualitative amniotic fluid volume. Each matrix is scored 0 or 2, depending if the metric is present. Maximum total score possible is 8. Examination is not intended to assess for anomalies. FINDINGS: POSITION: Cephalic PLACENTA: Anterior. Grade 2. AMNIOTIC FLUID INDEX: 6.6 cm. Deepest vertical pocket is 3.7 cm. This is below 5th percentile for patient's gestational age of 7.5 cm. CARDIAC ACTIVITY: 150 beats per minute BIOPHYSICAL PROFILE: Motion: 2 Tone: 2 Breathin Amniotic Fluid: 2 Total score: 8 US/US OB biophysical profile IMPRESSION: 1. Single intrauterine gestation in cephalic position with anterior placenta. 2. Total biophysical score is 8 (scale 0-8). 3. Amniotic fluid index 6.6 cm. This is below 5th percentile for patient's gestational age of 7.5 cm suggestive of oligohydramnios. 4. cardiac activity 150 beats per minute. Findings will be communicated by the [facility] work flow c s s representative Liz Spencer.
== END 2020-12-07 11:45 | disposition home or self-care (01) ==
LOC: HO.US 11:44
PROVIDERS: Visit Provider Obstetrics & Gynecology
DX: O28.8 Other abnormal findings on antenatal screening of mother (principal); O99.019 Anemia complicating pregnancy, unspecified trimester
CPT/HCPCS: 76819